=== PATIENT | male | born 1990 | race Caucasian/White ===

== ENCOUNTER 2016-07-02 12:00 | Emergency (ER) | payer SELFPAY ==
[~2016-07-02] VITALS: Ht 190.5 cm; Wt 85.0 kg
[~2016-07-02 12:00] MED LIST: CEPH500C3 PO; IBUP800T23 PO
[2016-07-02 12:02] VITALS: BP 143/78; PULSE 90; RESP 16; TEMP 98.3; O2SAT 98
--- NOTE | 2016-07-02 12:05 | PD ---
Physical Exam Time Seen by Provider: 12:03 Narrative 26 y/o male here for evaluation of dizziness, headache which started today. Vital signs reviewed. Seen at triage desk. Awaiting bed placement. Data Data Last Documented VS Vital Signs Date Time Temp Pulse Resp B/P Pulse Ox O2 Delivery O2 Flow Rate FiO2 07/02/16 12:02 98.3 90 16 143/78 98 MDM Medical Record Reviewed: Yes Supervised Visit with CHACHA: Rodríguez Simpson July 02, 2016 12:05
--- NOTE | 2016-07-02 12:27 | PD ---
HPI Chief Complaint: Dizziness Time Seen by Provider: 12:11 Travel History International Travel<30 days: No Contact w/Intl Traveler<30days: No Traveled to known affect area: No History of Present Illness HPI 26-year-old male complains of headache, dizziness. Patient states the symptoms started a month and half ago has been intermittent since then. Patient states the headache aching headache frontal head with radiation to back the head. Patient denies any visual change. Patient denies any photophobia. Patient states that he has nausea with the headache. Patient denies any neck pain. Patient denies any chest pain or shortness of breath. Patient denies abdominal pain. Patient states that he has intermittent nausea but no vomiting or diarrhea. Patient denies any focal weakness or numbness of extremity. Patient denies any alcohol or drug abuse. PFSH Past Medical History Medical History: Denies Significant Hx Autoimmune Disease: No Diminished Hearing: No Genitourinary: No Musculoskeletal: No Neurologic: No Psychiatric: No Respiratory: No Immunizations Current: Yes Tetanus Vaccination: < 5 Years Influenza Vaccination: No Past Surgical History Tonsillectomy: Yes (T&A) Other Surgery: Yes (T AND A AT AGE 7) Social History Alcohol Use: Yes (OCC) Tobacco Use: No Substance Use: Yes (cannabis) Allergies-Medications (Allergen,Severity, Reaction): Coded Allergies: No Known Allergies (Verified , 07/02/16) Reported Meds & Prescriptions Reported Meds & Active Scripts Active No Active Prescriptions or Reported Medications Review of Systems General / Constitutional: No: Fever Eyes: No: Visual changes HENT: Positive: Headaches, Lightheadedness Cardiovascular: No: Chest Pain or Discomfort Respiratory: No: Shortness of Breath Gastrointestinal: No: Abdominal Pain Genitourinary: No: Dysuria Musculoskeletal: No: Pain Skin: No Rash Neurologic: No: Weakness Psychiatric: No: Depression Endocrine: No: Polydipsia Hematologic/Lymphatic: No: Easy Bruising Physical Exam Narrative GENERAL: Well-nourished, well-developed patient. SKIN: Focused skin assessment warm/dry. HEAD: Normocephalic. EYES: No scleral icterus. No injection or drainage. NECK: Supple, trachea midline. No JVD or lymphadenopathy. CARDIOVASCULAR: Regular rate and rhythm without murmurs, gallops, or rubs. RESPIRATORY: Breath sounds equal bilaterally. No accessory muscle use. GASTROINTESTINAL: Abdomen soft, non-tender, nondistended. MUSCULOSKELETAL: No cyanosis, or edema. BACK: Nontender without obvious deformity. No CVA tenderness. Neurologic exam: Patient's awake and alert oriented 3. No obvious focal neurological deficit. Data Data Last Documented VS Vital Signs Date Time Temp Pulse Resp B/P Pulse Ox O2 Delivery O2 Flow Rate FiO2 07/02/16 15:33 60 18 109/60 99 Room Air 07/02/16 12:02 98.3 Orders Complete Blood Count With Diff (07/02/16 12:18) Comprehensive Metabolic Panel (07/02/16 12:18) Urinalysis - C+S If Indicated (07/02/16 12:18) Ct Brain W/O Iv Contrast(Rout) (07/02/16 12:18) Iv Access Insert/Monitor (07/02/16 12:18) Ecg Monitoring (07/02/16 12:18) Oximetry (07/02/16 12:18) Drug Screen, Random Urine (07/02/16 12:18) Mri Brain W&W/O Contrast (07/02/16 13:53) Ketorolac Inj (Toradol Inj) (07/02/16 14:15) Sodium Chlor 0.9% 1000 Ml Inj (Ns 1000 M (07/02/16 14:15) Prochlorperazine Inj (Compazine Inj) (07/02/16 15:00) Diphenhydramine Inj (Benadryl Inj) (07/02/16 15:00) Gadodiamide Pf Inj (Omniscan Pf Inj) (07/02/16 16:40) Labs Laboratory Tests Test 07/02/16 12:25 White Blood Count 10.2 TH/MM3 Red Blood Count 5.50 MIL/MM3 Hemoglobin 15.7 GM/DL Hematocrit 45.5 % Mean Corpuscular Volume 82.8 FL Mean Corpuscular Hemoglobin 28.6 PG Mean Corpuscular Hemoglobin 34.5 % Concent Red Cell Distribution Width 12.9 % Platelet Count 303 TH/MM3 Mean Platelet Volume 8.1 FL Neutrophils (%) (Auto) 73.0 % Lymphocytes (%) (Auto) 15.7 % Monocytes (%) (Auto) 8.1 % Eosinophils (%) (Auto) 2.6 % Basophils (%) (Auto) 0.6 % Neutrophils # (Auto) 7.4 TH/MM3 Lymphocytes # (Auto) 1.6 TH/MM3 Monocytes # (Auto) 0.8 TH/MM3 Eosinophils # (Auto) 0.3 TH/MM3 Basophils # (Auto) 0.1 TH/MM3 CBC Comment DIFF FINAL Differential Comment Sodium Level 142 MEQ/L Potassium Level 4.3 MEQ/L Chloride Level 107 MEQ/L Carbon Dioxide Level 28.5 MEQ/L Anion Gap 7 MEQ/L Blood Urea Nitrogen 10 MG/DL Creatinine 0.90 MG/DL Estimat Glomerular Filtration 104 ML/MIN Rate Random Glucose 94 MG/DL Calcium Level 9.4 MG/DL Total Bilirubin 0.4 MG/DL Aspartate Amino Transf 17 U/L (AST/SGOT) Alanine Aminotransferase 23 U/L (ALT/SGPT) Alkaline Phosphatase 84 U/L Total Protein 7.5 GM/DL Albumin 4.4 GM/DL MDM Medical Decision Making Medical Screen Exam Complete: Yes Emergency Medical Condition: Yes Interpretation(s) Last Impressions Brain MRI 07/02/16 1353 Signed Impressions: Service Date/Time: Saturday, July 02, 2016 16:09 - CONCLUSION: No acute intracranial findings. Gal Ruff MD Head CT 07/02/16 1218 Signed Impressions: Service Date/Time: Saturday, July 02, 2016 13:20 - CONCLUSION: 1. Small area of decreased attenuation in the left basal ganglia probably representing an old lacunar infarct. This is somewhat unusual for a patient of this age. MRI imaging with contrast would be warranted for further assessment. Charanjit Cho MD 1724 PM. CBC within normal limit. CMP within normal limit. Differential Diagnosis Differential diagnosis including migraine headache, tension headache, cluster headache, vertigo, viral syndrome. Narrative Course 26-year-old male with headache and dizziness. Diagnosis Primary Impression: Cephalgia Qualified Code: R51 - Nonintractable episodic headache, unspecified headache type Additional Impression: Dizziness Patient Instructions: General Instructions Additional Instructions: Take medications as needed. Follow-up with neurologist. Return if persistent problem or worse. Med/Other Pt SpecificInfo: Prescription(s) given Scripts Ondansetron Odt (Zofran Odt)4 Mg Tab4 Mg SL Q6HR PRN (Nausea/Vomiting) #12 TAB Ref 0 Prov:Jorge Eagle MD 07/02/16 Gufwwhrgys-Ctrzfzfusgvcn-Ixxbttro (Fioricet)50-300-40 Mg Cap1-2 Cap PO Q6H PRN ( HEADACHE) #30 CAP Ref 0 Prov:Jorge Eagle MD 07/02/16 Disposition: 01 DISCHARGE HOME Condition: Stable Jorge Eagle MD July 02, 2016 12:26
[2016-07-02 12:36] LABS: AUTOMATED NEUTROPHIL # 7.4 TH/MM3 (1.8-7.7); BASOPHIL # 0.1 TH/MM3 (0-0.2); BASOPHIL % 0.6 % (0.0-2.0); EOSINOPHIL # 0.3 TH/MM3 (0-0.4); EOSINOPHIL % 2.6 % (0.0-4.0); HEMATOCRIT 45.5 % (39.0-51.0); HEMO FLAGS DIFF FINAL; LYMPH % 15.7 % (9.0-44.0); LYMPHOCYTE # 1.6 TH/MM3 (1.0-4.8); MEAN CELL VOLUME 82.8 FL (80.0-100.0); MEAN CORPUSCULAR HEMOGLOBIN 28.6 PG (27.0-34.0); MEAN CORPUSCULAR HGB CONC 34.5 % (32.0-36.0); MONO % 8.1 % (0.0-8.0); PLATELET COUNT 303 TH/MM3 (150-450); RED CELL DISTRIBUTION WIDTH 12.9 % (11.6-17.2); WHITE BLOOD COUNT 10.2 TH/MM3 (4.0-11.0)
[2016-07-02 12:58] LABS: ALT (GPT) 23 U/L (12-78); ANION GAP 7 MEQ/L (5-15); AST (GOT) 17 U/L (15-37); BICARBONATE 28.5 MEQ/L (21.0-32.0); BLOOD UREA NITROGEN 10 MG/DL (7-18); CHLORIDE 107 MEQ/L (98-107); GLOMERULAR FILTRATION RATE 104 ML/MIN (>89); POTASSIUM 4.3 MEQ/L (3.5-5.1); SODIUM (NA) 142 MEQ/L (136-145)
[2016-07-02 13:00] LABS: ALKALINE PHOSPHATASE 84 U/L (45-117); TOTAL BILIRUBIN ADULT 0.4 MG/DL (0.2-1.0)
--- NOTE | 2016-07-02 13:40 | RADRPT ---
EXAM DATE/TIME: 07/02/2016 13:20 [facility] COMPARISON: No previous studies available for comparison. INDICATIONS : Cephalgia and dizziness. RADIATION DOSE: 56.35 CTDIvol (mGy) MEDICAL HISTORY : None SURGICAL HISTORY : None. ENCOUNTER: Initial ACUITY: 1 day PAIN SCALE: 7/10 LOCATION: Bilateral cranial TECHNIQUE: Multiple contiguous axial images were obtained of the head. Using automated exposure control and adj ustment of the mA and/or kV according to patient size, radiation dose was kept as low as reasonably a chievable to obtain optimal diagnostic quality images. FINDINGS: The examination demonstrates a small area of decreased attenuation within the left basal ganglia. Thi s appears to represent an old lacunar infarct which would be somewhat unusual in a patient of this ag e. MRI imaging of the brain would be warranted for further assessment. There is no acute intracranial hemorrhage. The ventricles are normal in size and configuration. No mass lesion is identified. The a ppearance of the posterior fossa is unremarkable. The osseous structures of the skull are grossly intact. CONCLUSION: 1. Small area of decreased attenuation in the left basal ganglia probably representing an old lacunar infarct. This is somewhat unusual for a patient of this age. MRI imaging with contrast would be juan anted for further assessment. Charanjit Cho MD on July 02, 2016 at 13:34 Board Certified Radiologist. This report was verified electronically.
[2016-07-02] MEDS ORDERED: SODIUM CHLOR 0.9% 1000 ML INJ 1,000 ML IV ONE (14:15)
[2016-07-02] MEDS ORDERED: KETOROLAC TROMETHAMINE 30 MG/ML (IVP) VIAL IV PUSH ONE (14:15)
[2016-07-02 15:00] VITALS: BP 117/66; PULSE 57; RESP 20; O2SAT 99
[2016-07-02] MEDS ORDERED: PROCHLORPERAZINE INJ 10 MG/2 ML VIAL IV PUSH ONE (15:00)
[2016-07-02] MEDS ORDERED: diphenhydrAMINE HCL 50 MG/ML VIAL IV PUSH ONE (15:00)
[2016-07-02 15:33] VITALS: BP 109/60; PULSE 60; RESP 18; O2SAT 99
[2016-07-02] MEDS ORDERED: GADODIAMIDE PF 287 MG/ML 20 ML VIAL (for RAD MRI) IV ONE (16:40)
--- NOTE | 2016-07-02 17:00 | RADRPT ---
EXAM DATE/TIME: 07/02/2016 16:09 [facility] COMPARISON: No previous studies available for comparison. INDICATIONS : Cephalgia. Vertigo and nausea. CONTRAST: 16 cc Omniscan (gadodiamide) IV MEDICAL HISTORY : None. SURGICAL HISTORY : Tonsillectomy. ENCOUNTER: Initial ACUITY: 2 day PAIN SCORE: 6/10 LOCATION: head TECHNIQUE: Multiplanar, multisequence MRI of the brain was performed both prior to and following the administrat ion of paramagnetic contrast. 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 No evidence of suspi cious mass, hemorrhage or other acute process. There is nothing to suggest acute infarction. The vent ricles are symmetric and normal. There is normal enhancement in intracranial vascular structures. No abnormal parenchymal enhancement is identified. extracranial structures are benign and intact. CONCLUSION: No acute intracranial findings. Gal Ruff MD on July 02, 2016 at 16:55 Board Certified Radiologist. This report was verified electronically.
[2016-07-02] MEDS ORDERED: ZOFR4TAB3 SL (17:31)
[2016-07-02] MEDS ORDERED: BUTA1CAP PO (17:31)
[2016-07-02 17:36] VITALS: BP 111/53; PULSE 51; RESP 16; O2SAT 99
== END 2016-07-02 18:16 | disposition home or self-care (01) ==
LOC: NEPC 12:00
DX: R51 Headache (principal); R42 Dizziness and giddiness; R11.0 Nausea
CPT/HCPCS: 70450; 70553; 80053; 85025; 96361; 96374; 96375; 99284; A9579; J0780; J1200; J1885; J7030